=== PATIENT | female | born 1950 | race Caucasian/White ===

== ENCOUNTER 2021-10-07 19:55 | Inpatient (IN) | payer MEDICARE, OTHER ==
[~2021-10-07] VITALS: Ht 154.9 cm; Wt 54.7 kg
[2021-10-07] MEDS ORDERED: SODIUM CHLORIDE 0.9% 1,000 ML IVB ONE (20:15)
[2021-10-07 20:55] LABS: Basophils # (auto) 0 10 ^3/uL (0-0.2); Basophils % (auto) 0.2 % (0.0-2.0); Eosinophils # (auto) 0 10 ^3/uL (0-0.8); Hematocrit 42.4 % (36.0-46.0); Hemoglobin 14.1 g/dL (12.2-16.2); Lymphocytes # (auto) 1.7 10 ^3/uL (0.4-5.4); Lymphocytes % (auto) 9.8 % (10.0-50.0); Mean Corpuscular Hemoglobin 30.7 pg (28.0-32.0); Mean Corpuscular Hgb Conc. 33.4 g/dL (32.0-36.0); Mean Corpuscular Volume 91.9 fL (80.0-100.0); Monocytes # (auto) 0.4 10 ^3/uL (0-1.3); Monocytes % (auto) 2.5 % (0.0-12.0); Neutrophils # (auto) 14.9 10 ^3/uL (1.6-8.6); Neutrophils % (auto) 87.5 % (37.0-80.0); Red Blood Cells 4.61 10^6/uL (4.0-5.20); Red Cell Distribution Width 13.3 % (11.8-14.3); White Blood Cell 17.1 10^3/uL (4.4-10.8)
[2021-10-07 21:13] LABS: Alanine Aminotransferase 21 U/L (13-56); Albumin 3.9 g/dL (3.4-5.0); Anion Gap 26 (5-15); Blood Alcohol < 3.0 mg/dL (0-5); Blood Urea Nitrogen 15 mg/dL (7-18); Calcium 8.8 mg/dL (8.5-10.1); Carbon Dioxide 13 mmol/L (21-32); Chloride 90 mmol/L (98-107); Glucose 180 mg/dL (74-106); Sodium 129 mmol/L (136-145)
[2021-10-07 21:16] LABS: Alkaline Phosphatase 79 U/L (45-117); Aspartate Aminotransferase 13 U/L (15-37); BUN/Creatinine Ratio 10.9; Bilirubin, Total 0.8 mg/dL (0.2-1.0); GFR African American 48 mL/min; GFR Non-African American 40 mL/min; Total Protein 7.3 g/dL (6.4-8.2)
[2021-10-07 21:19] LABS: Potassium 2.6 mmol/L (3.5-5.1)
[2021-10-07] MEDS ORDERED: POTASSIUM CHL 20MEQ/100ML 100 ML IV ONE (21:30)
[2021-10-07] MEDS ORDERED: POTASSIUM CHL 20 Meq TABLET PO ONE (21:30)
[2021-10-07] MEDS: ATORVASTATIN 20 MG TAB PO SCH (22:00)
[2021-10-07] MEDS ORDERED: ACETAMINOPHEN 325 MG TAB PO PRN (22:00)
[2021-10-07] MEDS ORDERED: NITROGLYCERIN 0.4 MG SL TAB SL PRN (22:00)
[2021-10-07] MEDS ORDERED: cefTRIAXone 1GM/50ML D5W 50 ML IV ONE (22:00)
[2021-10-07] MEDS ORDERED: MORPHINE SULFATE INJ 2 MG/ml SYRG IV PRN (22:00)
[2021-10-07] MEDS ORDERED: ONDANSETRON HCL 4 MG/2 ML VIAL IV PRN (22:00)
[2021-10-07] MEDS ORDERED: LORazepam 2MG/ML-1ML VIAL ONE (22:07)
[2021-10-07] MEDS ORDERED: LORazepam 2MG/ML-1ML VIAL IV ONE (22:30)
[2021-10-07 22:34] LABS: Urine Bacteria NONE SEEN /hpf (None Seen); Urine Blood Negative /uL (Negative); Urine Hyaline Cast FEW /lpf (0 - 2); Urine Specific Gravity 1.017 (1.001-1.035); Urine WBC 1 /hpf (0 - 5)
[2021-10-07 22:46] LABS: Alcohol, Urine < 3.0 mg/dL (0-10); Amphetamine Screen, Urine NEGATIVE (NEGATIVE); Barbiturate Scree,Urine NEGATIVE (NEGATIVE); Benzodiazephine Screen, Urine NEGATIVE (NEGATIVE); Cannabinoid Screen, Urine POSITIVE (NEGATIVE); Cocaine Screen, Urine NEGATIVE (NEGATIVE); Opiate Scree,Urine NEGATIVE (NEGATIVE); Phencyclidine Screen, Urine NEGATIVE (NEGATIVE)
[2021-10-07 23:10] LABS: Lactic Acid w/Reflex 12.7 mmol/L (0.4-2.0)
[2021-10-07] MEDS: SODIUM CHLORIDE 0.9% 1,000 ML IV SCH (23:22)
[2021-10-08] MEDS ORDERED: SODIUM CHLORIDE 0.9% 1,000 ML IV SCH (01:00)
[2021-10-08] MEDS ORDERED: VANCOMYCIN PER PHARMACY 0 MG IV SCH (01:00)
[2021-10-08] MEDS ORDERED: VANCOMYCIN 1GM/250ML 250 ML IV ONE (01:15)
[2021-10-08 06:11] LABS: Basophils # (auto) 0.1 10 ^3/uL (0-0.2); Basophils % (auto) 0.5 % (0.0-2.0); Eosinophils # (auto) 0 10 ^3/uL (0-0.8); Hematocrit 34.8 % (36.0-46.0); Lymphocytes # (auto) 0.6 10 ^3/uL (0.4-5.4); Lymphocytes % (auto) 3.2 % (10.0-50.0); Mean Corpuscular Hemoglobin 29.9 pg (28.0-32.0); Mean Corpuscular Hgb Conc. 34.5 g/dL (32.0-36.0); Mean Corpuscular Volume 86.7 fL (80.0-100.0); Monocytes # (auto) 0.6 10 ^3/uL (0-1.3); Monocytes % (auto) 3.5 % (0.0-12.0); Neutrophils # (auto) 16.7 10 ^3/uL (1.6-8.6); Neutrophils % (auto) 92.8 % (37.0-80.0); Red Blood Cells 4.01 10^6/uL (4.0-5.20); Red Cell Distribution Width 13.2 % (11.8-14.3)
[2021-10-08 06:27] LABS: Albumin 3.1 g/dL (3.4-5.0); Calcium 7.7 mg/dL (8.5-10.1)
[2021-10-08 06:32] LABS: BUN/Creatinine Ratio 16.9; Bilirubin, Total 0.8 mg/dL (0.2-1.0); Total Protein 5.8 g/dL (6.4-8.2)
[2021-10-08 06:48] LABS: Potassium 2.2 mmol/L (3.5-5.1)
[2021-10-08] MEDS: POTASSIUM CHL 20MEQ/100ML 100 ML IV SCH ×3 (07:24→14:11)
[2021-10-08] MEDS ORDERED: cefTRIAXone 1GM/50ML D5W 50 ML IV SCH (09:00)
[2021-10-08] MEDS ORDERED: PANTOPRAZOLE 40 MG TAB PO SCH (10:00)
[2021-10-08] MEDS: SODIUM CHLORIDE 0.9% 1,000 ML IV SCH (11:20)
[2021-10-08 11:58] LABS: Albumin 2.8 g/dL (3.4-5.0); Anion Gap 10 (5-15); Calcium 7.4 mg/dL (8.5-10.1); Carbon Dioxide 23 mmol/L (21-32); Chloride 96 mmol/L (98-107); Glucose 98 mg/dL (74-106); Magnesium 2.1 mg/dL (1.6-2.6); Sodium 129 mmol/L (136-145)
[2021-10-08 12:00] LABS: Aspartate Aminotransferase 20 U/L (15-37); Blood Urea Nitrogen 8 mg/dL (7-18); GFR African American 134 mL/min; GFR Non-African American 111 mL/min
[2021-10-08] MEDS ORDERED: POTASSIUM CHL 20 Meq TABLET PO ONE (12:00)
[2021-10-08 12:03] LABS: Alanine Aminotransferase 19 U/L (13-56); Alkaline Phosphatase 57 U/L (45-117); Bilirubin, Total 0.6 mg/dL (0.2-1.0); Phosphorus 1.8 mg/dL (2.5-4.90); Total Protein 5.4 g/dL (6.4-8.2)
[2021-10-08 12:12] LABS: Potassium 2.5 mmol/L (3.5-5.1)
[2021-10-08 12:27] LABS: INR 1.16 (0.9-1.15); Partial Thromboplastin Time 25.9 sec (23.6-33.0)
[2021-10-08] MEDS ORDERED: SODIUM CHLORIDE 0.9% 1,000 ML IV ONE (14:15)
[2021-10-08] MEDS: PIPERACILLIN-TAZOB 3.375GM 100 ML IV SCH (14:52)
[2021-10-08] MEDS ORDERED: POTASSIUM PHOSPHATE 44 MEQ in D5W 5% 250 ML IV ONE (15:00)
[2021-10-08] MEDS: VANCOMYCIN 1GM/250ML 250 ML IV SCH (19:06)
[2021-10-08] MEDS ORDERED: LORazepam 2MG/ML-1ML VIAL IV PRN ×2 (21:30)
[2021-10-08 23:34] VITALS: BP 123/57
[2021-10-08 23:44] VITALS: BP 123/57
[2021-10-09] MEDS: PIPERACILLIN-TAZOB 3.375GM 100 ML IV SCH ×4 (00:03→22:23)
[2021-10-09] MEDS: ATORVASTATIN 20 MG TAB PO SCH ×2 (00:03→22:22)
[2021-10-09 04:00] VITALS: BP 130/53
[2021-10-09 06:41] LABS: Basophils # (auto) 0 10 ^3/uL (0-0.2); Basophils % (auto) 0.2 % (0.0-2.0); Eosinophils # (auto) 0 10 ^3/uL (0-0.8); Hematocrit 36.8 % (36.0-46.0); Hemoglobin 12.8 g/dL (12.2-16.2); Lymphocytes % (auto) 8.6 % (10.0-50.0); Mean Corpuscular Hemoglobin 30.6 pg (28.0-32.0); Mean Corpuscular Hgb Conc. 34.8 g/dL (32.0-36.0); Mean Corpuscular Volume 87.9 fL (80.0-100.0); Monocytes # (auto) 0.8 10 ^3/uL (0-1.3); Neutrophils % (auto) 84.2 % (37.0-80.0); Red Blood Cells 4.18 10^6/uL (4.0-5.20); Red Cell Distribution Width 13.3 % (11.8-14.3); White Blood Cell 11.8 10^3/uL (4.4-10.8)
[2021-10-09 06:57] LABS: Potassium 3.3 mmol/L (3.5-5.1)
[2021-10-09 06:59] LABS: BUN/Creatinine Ratio 13.9
[2021-10-09 09:16] VITALS: BP 146/59
[2021-10-09] MEDS ORDERED: POTASSIUM CHL 20 Meq TABLET PO ONE ×2 (10:30→10:45)
[2021-10-09] MEDS: VANCOMYCIN 1GM/250ML 250 ML IV SCH (12:44)
[2021-10-09 13:00] VITALS: BP 127/57
[2021-10-09 17:49] VITALS: BP 135/54
[2021-10-09 22:00] VITALS: BP 125/49
[2021-10-10] MEDS ORDERED: HYDR25TA5 PO (01:42)
[2021-10-10] MEDS ORDERED: ATOR10TA52 PO (01:42)
[2021-10-10] MEDS ORDERED: OMEP20TA PO (01:42)
[2021-10-10] MEDS ORDERED: POM (01:42)
[2021-10-10 05:00] VITALS: BP 142/66
[2021-10-10] MEDS: PIPERACILLIN-TAZOB 3.375GM 100 ML IV SCH ×2 (06:20→15:00)
[2021-10-10 06:55] LABS: Basophils # (auto) 0 10 ^3/uL (0-0.2); Basophils % (auto) 0.4 % (0.0-2.0); Eosinophils # (auto) 0 10 ^3/uL (0-0.8); Eosinophils % (auto) 0.3 % (0.0-7.0); Hematocrit 39.5 % (36.0-46.0); Hemoglobin 13.8 g/dL (12.2-16.2); Lymphocytes # (auto) 0.9 10 ^3/uL (0.4-5.4); Lymphocytes % (auto) 9.7 % (10.0-50.0); Mean Corpuscular Hemoglobin 30.7 pg (28.0-32.0); Mean Corpuscular Hgb Conc. 34.9 g/dL (32.0-36.0); Mean Corpuscular Volume 87.9 fL (80.0-100.0); Monocytes # (auto) 0.7 10 ^3/uL (0-1.3); Monocytes % (auto) 7.3 % (0.0-12.0); Neutrophils # (auto) 7.7 10 ^3/uL (1.6-8.6); Neutrophils % (auto) 82.3 % (37.0-80.0); Red Blood Cells 4.49 10^6/uL (4.0-5.20); Red Cell Distribution Width 13.6 % (11.8-14.3); White Blood Cell 9.3 10^3/uL (4.4-10.8)
[2021-10-10 07:09] LABS: Calcium 8.4 mg/dL (8.5-10.1); Potassium 3.2 mmol/L (3.5-5.1)
[2021-10-10 07:10] LABS: BUN/Creatinine Ratio 13.4
[2021-10-10] MEDS: VANCOMYCIN 1GM/250ML 250 ML IV SCH (07:41)
[2021-10-10] MEDS ORDERED: POTASSIUM CHL 20 Meq TABLET PO ONE (08:45)
[2021-10-10 09:00] VITALS: BP 142/60
[2021-10-10 13:00] VITALS: BP 143/53
[2021-10-10] MEDS ORDERED: LEVO500T31 PO (14:37)
[2021-10-10] MEDS ORDERED: POTA10TA32 PO (14:37)
[2021-10-10 15:58] VITALS: BP 143/53
[2021-10-10] MEDS ORDERED: VANCOMYCIN 1GM/250ML 250 ML IV SCH (22:00)
== END 2021-10-10 16:47 | disposition home or self-care (01) | DRG 871 ==
LOC: ER 19:55 → TELE 22:00 → TELE-WESTW 10-08 22:56 → WEST WING 10-09 11:18
PROVIDERS: ADMIT Nurse Practitioner; ATTEND Internal Medicine
DX: A41.9 Sepsis, unspecified organism (principal); J69.0 Pneumonitis due to inhalation of food and vomit; G92.9 Unspecified toxic encephalopathy; N17.9 Acute kidney failure, unspecified; E87.1 Hypo-osmolality and hyponatremia; E87.6 Hypokalemia; Z20.822 Contact with and (suspected) exposure to COVID-19; G40.909 Epilepsy, unspecified, not intractable, without status epilepticus; Z96.643 Presence of artificial hip joint, bilateral; F17.200 Nicotine dependence, unspecified, uncomplicated; I10 Essential (primary) hypertension; T50.2X5A Adverse effect of carbonic-anhydrase inhibitors, benzothiadiazides and other diuretics, initial encounter; Y92.89 Other specified places as the place of occurrence of the external cause; Z82.49 Family history of ischemic heart disease and other diseases of the circulatory system; Z83.3 Family history of diabetes mellitus; Z90.710 Acquired absence of both cervix and uterus
CPT/HCPCS: 36415; 36600; 70450; 70551; 71045; 74176; 80048; 80053; 80202; 80307; 80320; 81001; 82140; 82805; 83605; 83735; 83880; 84100; 84439; 84443; 85025; 85610; 85730; 87040; 87278; 87804; 93005; 95819; 96361; 96365; 96366; 96367; 96368; 96375; 97163; G0378; J0696; J2543; J3480; J7060

== ENCOUNTER → 2021-10-15 | Outpatient (CLI) | payer MEDICARE, OTHER ==
[~2021-10-15] MED LIST: ATOR10TA52 PO; LEVO500T31 PO; OMEP20TA PO; POTA10TA32 PO
[2021-10-15 12:18] LABS: Calcium 8.8 mg/dL (8.5-10.1); Potassium 4.4 mmol/L (3.5-5.1)
[2021-10-15 12:20] LABS: BUN/Creatinine Ratio 12.6
== END | disposition home or self-care (01) ==
LOC: LAB 10:06
PROVIDERS: ATTEND Internal Medicine
DX: I10 Essential (primary) hypertension (principal)
CPT/HCPCS: 36415; 80048